=== PATIENT | male | born 1955 | race African-American/Black ===

== ENCOUNTER 2019-09-28 09:43 | Inpatient (IN) | payer OTHER, SELFPAY ==
[2019-09-28] VITALS (23 sets, daily range): BP systolic 105–127; BP diastolic 63–82; PULSE 82–100; RESP 9–22; TEMP 36.6–37.2; O2SAT 80–99; BMI 24.7
--- NOTE | ~2019-09-28 | US_ITS ---
EXAMINATION: US venous doppler [facility] DATE: 09/28/2019 15:08 INDICATION: Lower limb edema. TECHNIQUE: Grayscale ultrasound images without and with compression and Doppler ultrasound images of the bilateral lower extremity veins were obtained. COMPARISON: None. FINDINGS: The visualized portions of right common femoral vein, profunda (deep) femoral vein, femoral vein, pop liteal vein, peroneal veins, posterior tibial veins, and greater saphenous vein outflow are patent. The visualized portions of left common femoral vein, profunda femoral vein, femoral vein, popliteal v ein, peroneal veins, posterior tibial veins, and greater saphenous vein outflow are patent. IMPRESSION: 1. No deep venous thrombosis. Reviewed, dictated and finalized at location A. ET CAR MECHANIC
--- NOTE | ~2019-09-28 | US_ITS ---
US abdomen complete EXAMINATION: US Abdomen Complete INDICATION: Elevated liver function tests. PROCEDURE: Realtime High Resolution abdomen ultrasound. COMPARISON: No prior studies for comparison FINDINGS: Gallbladder within normal limits. No gallstones, pericholecystic fluid, gallbladder wall t hickening or biliary dilatation. Common bile duct measures mm. Liver echotexture within normal limits without focal mass. Pancreas within normal limits. Pancreati c tail is obscured by bowel gas. Spleen is enlarged measuring 14.2 cm. There are bilateral renal cys ts measuring up to 1.9 cm on the right and 1.6 cm on the left. Otherwise, renal echotexture within no rmal limits. Right kidney measures 10.8 cm. Left kidney measures 10.1 cm. Visualized aspects of the aorta and IVC are within normal limits. Portal vein is patent. No sonograph ic New's sign indicated by the technologist. IMPRESSION: 1: Splenomegaly. 2: Bilateral renal cysts. Reviewed, dictated and finalized at location B. CAL RECORDS RECEPTIONIST
--- NOTE | ~2019-09-28 | CT_ITS ---
EXAMINATION: CT chest w con EXAM DATE: 09/30/2019 12:32 INDICATION: Right heart failure. Abnormal chest x-ray. CML. TECHNIQUE: Spiral CT of the chest following intravenous injection of 75 mL Omnipaque 350. Axial, cor onal and sagittal images were reviewed. Coronal maximum intensity pixel images of chest reviewed. T tere dose-length product (DLP) for this examination was 217.37 mGy-cm. The exposure was tailored accor ding to patient size (auto mA exposure control), and iterative reconstruction (ASIR) was used as toño tional dose reduction technique. Correlation is made to chest x-ray 09/28/2019. FINDINGS: There is 1 cm left upper lobe calcified granuloma. Mild interlobular septal thickening, pu lmonary edema or interstitial lung disease. There is moderate emphysema. Some small scattered regions of ground glass opacifications could be nonspecific pneumonitis, interstitial lung disease, acute ed sushma or infection, cryptogenic organizing pneumonia. There are no pleural or pericardial effusions. Tracheobronchial tree is patent. There is no mediastinal, hilar or axillary lymphadenopathy. The re is no pneumothorax. Heart normal in size. There is mild coronary arterial calcification, arter ial sclerosis. Left adrenal adenoma. Subcentimeter splenic hypodensity likely benign. There is thor acic spondylosis without osteoblastic or osteolytic lesions identified. IMPRESSION: 1. Some scattered groundglass opacities, could be edema or infection if acute. Chronic possibilities include pneumonitis, cryptogenic organizing pneumonia. 2. Mild interlobular septal thickening. 3. Moderate emphysema Reviewed, dictated and finalized at location A. TTANCE CLERK
--- NOTE | ~2019-09-28 | XR_ITS ---
XR chest 1V portable 09/28/2019 10:36 Indication: Shortness of breath Procedure: AP portable chest Comparison: 06/04/2017 Findings: Heart size normal. Mild diffuse bilateral mixed interstitial and airspace disease. No pleur al effusion or pneumothorax. There is atherosclerosis of the aorta. No acute osseous abnormality. Impression: 1: Mild diffuse mixed bilateral interstitial and airspace disease which may represent edema or less l ikely pneumonia. Reviewed, dictated and finalized at location B. OARDER Impression: 1: Mild diffuse mixed bilateral interstitial and airspace disease which may rep resent edema or less likely pneumonia.
--- NOTE | 2019-09-28 09:59 | ED.GENADULT ---
HPI - General Adult General Chief complaint: Unspecified Stated complaint: leg swelling Time Seen by Provider: 09/28/19 09:58 Source: patient Mode of arrival: ambulatory Limitations: no limitations History of Present Illness HPI narrative: The pt is a 64 y/o male who presents to the ED with c/o bilateral leg swelling. The pt states that his leg swelling has been on and off for many years. He decided to come to the ED today because the swelling is making it hard for him to walk. The pt reports urinary frequncy, but denies dysuria. He states that he was on Lasix a while back but is not currently on any diuretics. The pt has a PMHx of arthritis and HTN, but denies having kidney problems. He does not know if he has any heart problems. The pt follows up with Dr. Duran for leukemia. complaint: Leg swelling Onset (ago): year(s) (worse today) Associated symptoms: other (urinary frequency) Related Data Allergies Allergy/AdvReac Type Severity Reaction Status Date / Time NSAIDS (Non-Steroidal AdvReac Gastrointestinal Verified 09/28/19 10:04 Anti-Inflamma Upset Penicillins AdvReac Hives Verified 09/28/19 10:04 Review of Systems Review of Systems: All systems reviewed & are unremarkable except as noted in HPI and below Genitourinary: Genitourinary: Denies dysuria and Reports urinary frequency Musculoskeletal: Musculoskeletal: Reports other (bilateral leg swelling) [facility], [facility] Past Medical History Medical History Arthritis (Acute) Hypertension (Acute) Surgical History Surgical History No pertinent past surgical history (Acute) Social History Social History Smoking status: Never smoker Gender identity (if verbalized by the patient): Male Exam Const: General: no acute distress and alert Orientation/consciousness: oriented x3 HENMT: Head: normal to inspection Eyes: Conjunctivae: conjunctivae normal Pupils: PERRL Neck: Neck: normal visual inspection Chest: Chest palpation & inspection: normal inspection of the chest and abnormal inspection of the chest Resp: Effort & Inspection: normal respiratory effort Auscultation: clear to auscultation bilaterally GI: Palpation (GI): Yes soft Back/Spine/Pelvis: Back: no CVA tenderness Skin: General skin exam: normal color Neuro: General: oriented x3 and moves all extremities Extrem: General: edema Other: has 2 plus edema of both lower ext. Course Course Emergency Course: Patient desataurated to 85 to 86% on room air. I have given him 40 of Lasix he voided close to 600 mL of urine. He states that he has a prescription for oxygen but he does not have oxygen supply at home. will admit to the hospital Consultations Consultation #1: Discussed case with Hospitalist, Dr. Younger. Accepted admission. Date: 09/28/19 Time: 11:50 Vital Signs Vital signs: Vital Signs Temperature 37.2 C 09/28/19 09:59 Pulse Rate 87 09/28/19 09:59 Respiratory Rate 12 09/28/19 09:59 Blood Pressure 127/82 09/28/19 09:59 Pulse Oximetry 84 L 09/28/19 09:59 Temperature 37.2 C 09/28/19 09:59 Pulse Rate 87 09/28/19 11:31 Respiratory Rate 10 L 09/28/19 11:31 Blood Pressure 114/75 09/28/19 11:30 Pulse Oximetry 84 L 09/28/19 09:59 Medical Decision Making Vital Signs Vital Signs: Vital Signs Temperature 37.2 C 09/28/19 09:59 Pulse Rate 87 09/28/19 09:59 Respiratory Rate 12 09/28/19 09:59 Blood Pressure 127/82 09/28/19 09:59 Pulse Oximetry 84 L 09/28/19 09:59 Temperature 37.2 C 09/28/19 09:59 Pulse Rate 87 09/28/19 11:31 Respiratory Rate 10 L 09/28/19 11:31 Blood Pressure 114/75 09/28/19 11:30 Pulse Oximetry 84 L 09/28/19 09:59 Lab Data Result diagrams: 09/28/19 10:21 09/28/19 10:21 Labs: Lab Results 09/28/19 09/28/19 Rang
--- NOTE | 2019-09-28 10:02 | ECG_ITS ---
Measurements Intervals [place] Rate: 88 P: 50 IL: 139 QRS: 46 QRSD: 85 T: 30 QT: 380 QTc: 462 Interpretive Statements SINUS RHYTHM POSSIBLE LEFT ATRIAL ENLARGEMENT POSSIBLE LEFT VENTRICULAR HYPERTROPHY BORDERLINE ECG Electronically Signed On 09-28-2019 13:56:24 DOCENT COORDINATOR by Brennan Hightower D.O.
--- NOTE | 2019-09-28 10:18 | PC.NURSE ---
PT STATES THAT HE STOPPED USING HEROINE X1 MONTH PRIOR AND IS TAKING SUBOXONE.
[2019-09-28] MEDS: FUROSEMIDE INJ 40 MG/4 ML VIAL IV PUSH ×2 (10:19→22:08)
--- NOTE | 2019-09-28 10:27 | PC.NURSE ---
Pt placed on 2L o2 per RN tequila at time of Initial assessment due to pt RA o2 saturation 88-89%.
[2019-09-28 10:37] LABS: Basophils Percent Auto 0.8 % (0.2-1.2); Eosinophils Percent Auto 0.8 % (0-4.4); Hematocrit 35.6 % (42.0-52.0); Hemoglobin 10.6 g/dL (14.0-18.0); Immature Granulocyte Absolute 0.01 K/mm3 (0.00-0.031); Immature Granulocyte Percent A 0.2 % (0-0.5); Immature Platelet Fraction Pct 2.5 % (0.9-11.2); Mean Corpuscular HGB Conc 29.8 g/dl (32-36); Mean Corpuscular Hemoglobin 25.4 pg (26-34); Mean Corpuscular Volume 85.4 fl (80-100); Mean Platelet Volume 9.8 fl (7.4-10.4); Monocytes Absolute Auto 0.9 K/mm3 (0.1-0.6); Monocytes Percent Auto 17.2 % (2.6-8.5); Neutrophils Absolute Auto 3.3 K/mm3 (1.3-6.7); Platelet Count Result 190 k/mm3 (150-375); Red Blood Count 4.17 M/mm3 (4.6-6.20); Red Cell Distribution Width 21.2 % (11.5-14.5)
--- NOTE | 2019-09-28 10:46 | PC.NURSE ---
Pt c/o leg pain at this time, RN informed pt that md does not want to give narcotic pain medication due to pt taking suboxone and significant hx of herione use. RN asked MD about medication for pt due to his c/o pain, WINNIE Pastor gave verbal order for Ofirmev 1G IV at this time.
[2019-09-28 10:48] LABS: Alanine Aminotransferase 101 U/L (4-50); Albumin Level 4.2 g/dL (3.5-5.1); Alkaline Phosphatase 170 U/L (38-126); Aspartate Amino Transferase 69 U/L (17-59); Bilirubin,Total 0.5 mg/dL (0.2-1.3); Blood Urea Nitrogen 20 mg/dL (9-20); Calcium 8.1 mg/dL (8.4-10.2); Carbon Dioxide 32 mmol/L (22-30); Chloride 100 mmol/L (98-107); Estimated Glomerular Filt Rate > 60; Glucose 90 mg/dL (75-110); Potassium 5.4 mmol/L (3.4-5.0); Sodium 139 mmol/L (137-145)
[2019-09-28 10:54] LABS: Anisocytosis 2+ (NORMAL); Hypochromasia 1+ (NORMAL); Microcytosis 1+ (NORMAL); Platelet Estimate Adequate (Adequate)
[2019-09-28 11:00] LABS: NT Pro B Type Natriuretic Pept 1780 PG/ML (5-100); Troponin I 0.014 ng/mL (0.000-0.034)
--- NOTE | 2019-09-28 11:06 | PC.NURSE ---
Pt refused ofirmev, stating Fuck that shit, it fucks with my stomach, don't give me that. MD aware, no new orders.
--- NOTE | 2019-09-28 13:31 | ADMGEN ---
This patient, Dain Sprague, was admitted to [facility] Surg Room 332-02. Patient/family oriented to hospital policies and general routines including ID bracelet, bed and alarms, visiting hours, pain management, procedures, bathroom and other care routines, personal items, smoking policy, room service/diet, and visiting hours. Valuables list has been completed. Information on how to activate the Rapid Response Team has been discussed. Patient/Family are encouraged to report perceived risks to care and to ask questions if they do not understand what they are told or what they should do.
--- NOTE | 2019-09-28 13:47 | PC.NURSE ---
Patient arrived on our floor today from the ER @ 1330.
--- NOTE | 2019-09-28 14:29 | PC.NURSE ---
Patient poor historian and refuses to answer admission questions.
--- NOTE | 2019-09-28 14:48 | PC.NURSE ---
to ultrasound per stretcher
--- NOTE | 2019-09-28 15:00 | PC.NURSE ---
patient brought home medications here with him. [place] container empty. witnessed with Jc Yin.
[2019-09-28 15:04] LABS: Troponin I 0.012 ng/mL (0.000-0.034)
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
[2019-09-28 17:37] LABS: Magnesium 2.2 mg/dL (1.6-2.3); Phosphorus 4.6 mg/dL (2.5-4.5); Potassium 4.6 mmol/L (3.4-5.0)
[2019-09-28 17:49] LABS: Troponin I < 0.012 ng/mL (0.000-0.034)
[2019-09-28] MEDS: ALBUTEROL SULFATE NEB 2.5 MG/0.5 ML INH 5 MG INHALATION (20:05)
[2019-09-28] MEDS: IPRATROPIUM BR 0.02% INH SOLN 0.5 MG/2.5 ML VIAL INHALATION (20:05)
[2019-09-28] MEDS: GABAPENTIN 400 MG CAPSULE PO (22:08)
[2019-09-28 22:26] LABS: INR 1.2
[2019-09-28 22:28] LABS: D Dimer 0.69 ug/mL (<0.48)
[2019-09-28 22:36] LABS: Troponin I < 0.012 ng/mL (0.000-0.034)
[2019-09-29] VITALS (16 sets, daily range): BP systolic 111–119; BP diastolic 65–67; PULSE 77–106; RESP 16–20; TEMP 36.7–36.8; O2SAT 74–95
--- NOTE | 2019-09-29 00:47 | PC.NURSE ---
PATIENT KEEPS REMOVING TELEMETRY AND STATING THAT IT IS FALLING OFF. PATIENT IS ALSO EATING ICE CREAM AND JULES CRACKER AND DRINKING COFFEE AND COKE SODA AT LEAST ONE TO TWO EVERY 2 HOURS.
[2019-09-29] MEDS: IPRATROPIUM BR 0.02% INH SOLN 0.5 MG/2.5 ML VIAL INHALATION ×3 (01:59→22:48)
[2019-09-29] MEDS: ALBUTEROL SULFATE NEB 2.5 MG/0.5 ML INH 5 MG INHALATION ×3 (01:59→22:47)
--- NOTE | 2019-09-29 05:05 | PC.NURSE ---
PATIENT KEEPS REMOVING TELEMETRY, AND OXYGEN. PATIENT GOT COMPLETELY DRESSED. KEPT SAYING THAT HE WAS GOING HOME. THAT HE THOUGHT THEY WERE GOING TO RELEASE HIM. HAD TO CONVINCE HIM THAT HE WASN'T QUITE READY.
[2019-09-29] MEDS: GABAPENTIN 400 MG CAPSULE PO ×3 (05:08→20:34)
[2019-09-29 06:37] LABS: Blood Urea Nitrogen 23 mg/dL (9-20); Calcium 7.5 mg/dL (8.4-10.2); Carbon Dioxide 29 mmol/L (22-30); Chloride 99 mmol/L (98-107); Estimated CRCL calculation 64 ml/min; Estimated Glomerular Filt Rate > 60; Glucose 114 mg/dL (75-110); Potassium 5.1 mmol/L (3.4-5.0); Sodium 138 mmol/L (137-145)
[2019-09-29] MEDS: ALLOPURINOL 300 MG TABLET PO (08:55)
[2019-09-29] MEDS: FLUOXETINE HCL 20 MG CAP PO (08:55)
[2019-09-29] MEDS: FUROSEMIDE INJ 40 MG/4 ML VIAL IV PUSH (08:55)
[2019-09-29] MEDS: FERROUS SULFATE 324 MG TABLET PO (08:55)
--- NOTE | 2019-09-29 09:51 | PCRCNOTE ---
Pt. refused his breathing tx; Dr. Mistry notified of the refusal.
--- NOTE | 2019-09-29 10:01 | PHAR ---
HOME MEDICATION VERIFIED BY PHARMACY: IMATINIB MESYLATE 400MG TABLETS TAKE 1 TABLET PO DAILY AFTER BREAKFAST RX#[id number]
--- NOTE | 2019-09-29 13:00 | PM.IMPN ---
Progress Note: A&P Assessment and Plan (1) CHF (congestive heart failure): Qualifiers: Heart failure chronicity: acute on chronic Heart failure type: diastolic Qualified Code(s): I50.33 - Acute on chronic diastolic (congestive) heart failure Code(s): I50.9 - Heart failure, unspecified Status: Acute Assessment and Plan: Findings appear consistent with congestive heart failure. Patient has not yet signed release for records from [facility] in [place], [place] but agrees to do so at this point. Echocardiogram done today with EF 65-70%, mild concentric increased left ventricular wall thickness and normal diastolic function with no significant valvular abnormality. As he does have oxygen requirement, will check Apnea Link. Will continue IV Lasix for now. (2) Acute respiratory failure with hypoxia: Code(s): J96.01 - Acute respiratory failure with hypoxia Status: Acute Assessment and Plan: Patient reports he is supposed to use oxygen at home but is not using. Venous Dopplers of the lower extremities negative for DVT. Does not appear to be consistent with pneumonia with no cough, fever or elevated WBC. Will do CT chest as noted above. Hold off on antibiotics at this point. (3) Elevated LFTs: Code(s): R94.5 - Abnormal results of liver function studies Status: Acute Assessment and Plan: Mild elevation of LFTs on admission. History of IV drug use but pending. He is on Gleevec for CML which could be causing mild elevation. With echocardiogram normal and edema issues, will check abdominal ultrasound. Continue to follow LFTs. (4) Hyperkalemia: Code(s): E87.5 - Hyperkalemia Status: Acute Assessment and Plan: Potassium level back up to 5.1 today. Will continue to follow. Creatinine remains within acceptable range. (5) Iron deficiency anemia: Qualifiers: Iron deficiency anemia type: unspecified iron deficiency Qualified Code(s): D50.9 - Iron deficiency anemia, unspecified Code(s): D50.9 - Iron deficiency anemia, unspecified Status: Acute Assessment and Plan: Hgb 10.6 today and stable. Will continue home iron. Will follow H&H. Transfuse if needed. (6) DVT prophylaxis: Code(s): Z29.9 - Encounter for prophylactic measures, unspecified Status: Acute Assessment and Plan: Lovenox. Time Spent With Patient Time with patient: 15 - 25 minutes Subjective Interval history: Date of Service: 09/29/2019. Admitted with CHF exacerbation. Patient is up eating his lunch. He still has swelling in his legs. Reports shortness of breath with exertion. No chest pain or chest pressure. No abdominal pain. No headaches or dizziness. Review of Systems Constitutional: Constitutional: Denies chills and Denies fever(s) ENT: Denies dysphagia Cardiovascular: Cardiovascular: Denies chest pain and Denies palpitations Respiratory: Respiratory: Denies cough and Reports dyspnea on exertion Gastrointestinal: Gastrointestinal: Denies abdominal pain, Denies nausea and Denies vomiting Genitourinary: Genitourinary: Denies hematuria, Denies dysuria and Denies urinary frequency Musculoskeletal: Musculoskeletal: Reports no additional musculoskeletal complaints Integumentary/Breasts: Skin/Breast: Denies rash Neurologic: Denies headache(s) Psychiatric: Psychiatric: Denies confusion Exam Const: General: no acute distress HENMT: Mouth: Yes moist mucous membranes Neck: Neck: supple Lymphatic: lymphadenopathy not noted Resp: Auscultation: rales (2/3 up lung field bilaterally), no wheezes and diminished lung sounds Cardio: Rate: regular rate Rhythm: regular rhythm GI: Palpation (GI): Yes soft and No tender Auscultation: normal bowel sounds Neuro: Speech: normal speech Extrem: General: edema (2-3+ lower extremities) Psych: Mental Status: mental status grossly normal Affect: normal affec
--- NOTE | 2019-09-29 16:28 | ECHO_ITS ---
Patient Info Name: Dain Sprague Age: 64 years : 1955 Gender: Male Ht: 72 in Wt: 183 lbs BSA: 2.06 m2 HR: 85 bpm BP: 111 / 66 mmHg Heart Rhythm: Sinus Rhythm Technical Quality: Good Exam Date: 09/29/2019 9:30 AM Exam Location: [facility] Pulmonary Patient Status: Inpatient Admit Date: 09/28/2019 Staff Ordering Physician: Marina Moyer PA-C Senior Communications Specialist: Lio Ware RDCS Attending Provider: Leola Ayers MD Referring Physician: Comfort GUTIERREZ; Exam Type: CA echo doppler color flow Study Info Indications I50.30 - Unspecified diastolic (congestive) heart failure Complete two-dimensional, color flow and Doppler transthoracic echocardiogram is performed. Strain analysis performed. History/Risk Factors HFpEF; HTN, LE Edema, PSA. Summary 1. Left ventricular systolic function is normal, estimated at 65-70%. 2. There is mild concentric increased left ventricular wall thickness. 3. The left ventricular diastolic function is normal. 4. No significant valvular abnormality. Left Ventricle Left ventricular chamber dimension is normal. Left ventricular systolic function is normal, estimated at 65-70%. There is mild concentric increased left ventricular wall thickness. The left ventricular diastolic function is normal. Right Ventricle Right ventricular chamber dimension is normal. Left Atria Left atrial chamber dimension is normal. Right Atria Right atrial chamber dimension is normal. Aortic Valve The aortic valve is trileaflet. Pulmonic Valve The pulmonic valve is not well visualized. Mitral Valve The mitral valve has normal leaflets. Tricuspid Valve The tricuspid valve leaflets are normal. There is trace tricuspid valve regurgitation. Pericardium/Pleural The pericardium appears normal. Aorta The aortic root size at the sinus of Valsalva is normal. Left Ventricular Outflow Tract Name Value Normal LVOT 2D LVOT Diameter 1.9 cm LVOT Doppler LVOT Peak Gradient 7 mmHg LVOT Mean Gradient 4 mmHg LVOT VTI 25 cm LVOT VTI/AV VTI Ratio 0.7 LVOT Stroke Volume 74 ml Mitral Valve Name Value Normal MV Doppler MV Decel Carbon 343 cm/s2 MV PHT 67 ms MV Area (PHT) 3.3 cm2 4.0-5.0 MV Diastolic Function MV E Peak Velocity 79 cm/s MV A Peak Velocity 69 cm/s MV E/A 1.1 MV Decel Time 230 ms MV Annular TDI
[2019-09-29 22:40] LABS: Hepatitis B Surface Antigen Negative (Negative)
[2019-09-29 22:46] LABS: HAV RESULT Negative (Negative); Hepatitis B Core IgM Result Negative (Negative)
[2019-09-29 23:02] LABS: Hepatitis C Virus Antibody Reactive (Negative)
[2019-09-30] VITALS (17 sets, daily range): BP systolic 147; BP diastolic 125; PULSE 85–114; RESP 18–20; TEMP 36.4; O2SAT 77–93
--- NOTE | 2019-09-30 05:14 | PC.NURSE ---
PATIENT HAS CONSISTENTLY ASKED FOR 2 CANS OF SODA FROM EVERY PERSON THAT COMES INTO THE ROOM. PATIENT REFUSED TO TAKE HIS LASIX, STATED IT WAS A BLOOD THINNER AND STATED STAFF WAS LYING WHEN TOLD DIFFERENTLY. PATIENT REFUSED HIS BLOOD THINNER. PATIENT WAS CURSING AT STAFF AND THROWING TELEMETRY BOX AT STAFF. PATIENT REFUSED TO WEAR THE ENTIRE SLEEP APNEA EQUIPMENT. STATED THAT IT WASN'T WORKING AND THAT WE DID NOT KNOW WHAT WE WERE TALKING ABOUT. PATIENT IS DEMANDING THAT IV BE REMOVED. AND DOES NOT WANT ANOTHER ONE PLACED BACK IF REMOVED. PATIENT REFUSED TO COOPERATE WITH STAFF.
[2019-09-30 06:23] LABS: Hematocrit 36.4 % (42.0-52.0); Hemoglobin 10.8 g/dL (14.0-18.0); Mean Corpuscular HGB Conc 29.7 g/dl (32-36); Mean Corpuscular Hemoglobin 25.8 pg (26-34); Mean Corpuscular Volume 87.1 fl (80-100); Mean Platelet Volume 9.7 fl (7.4-10.4); Platelet Count Result 181 k/mm3 (150-375); Red Blood Count 4.18 M/mm3 (4.6-6.20); Red Cell Distribution Width 21.2 % (11.5-14.5); White Blood Count 3.6 K/mm3 (4.5-10.0)
[2019-09-30 06:35] LABS: Blood Urea Nitrogen 17 mg/dL (9-20); Calcium 7.8 mg/dL (8.4-10.2); Carbon Dioxide 32 mmol/L (22-30); Chloride 103 mmol/L (98-107); Estimated CRCL calculation 78 ml/min; Estimated Glomerular Filt Rate > 60; Glucose 108 mg/dL (75-110); Potassium 5.5 mmol/L (3.4-5.0); Sodium 140 mmol/L (137-145)
--- NOTE | 2019-09-30 07:31 | PCRCNOTE ---
09/30 0200 neb treatment omitted. Patient on apnea link.
[2019-09-30] MEDS: ASPIRIN 81 MG CHEWABLE TABLET PO (09:11)
[2019-09-30] MEDS: FERROUS SULFATE 324 MG TABLET PO (09:11)
[2019-09-30] MEDS: FLUOXETINE HCL 20 MG CAP PO (09:12)
[2019-09-30] MEDS: ALLOPURINOL 300 MG TABLET PO (09:12)
[2019-09-30] MEDS: ALBUTEROL SULFATE NEB 2.5 MG/0.5 ML INH 5 MG INHALATION ×3 (10:04→20:46)
[2019-09-30] MEDS: IPRATROPIUM BR 0.02% INH SOLN 0.5 MG/2.5 ML VIAL INHALATION ×3 (10:04→20:46)
--- NOTE | 2019-09-30 11:54 | PM.IMPN ---
Progress Note: A&P Assessment and Plan (1) Acute respiratory failure with hypoxia: Code(s): J96.01 - Acute respiratory failure with hypoxia Status: Acute Assessment and Plan: Noted to have hypoxia on presentation. Patient reports he is supposed to use oxygen at home but has not been using. Venous Dopplers of the lower extremities negative for DVT. Has not appeared to have pneumonia but CT chest ordered today with results as noted below. Home oxygen evaluation ordered for today with patient found to require 3 L at rest and 5 L with activity. Possibly home tomorrow if stable. (2) Abnormal chest CT: Code(s): R93.89 - Abnormal findings on diagnostic imaging of other specified body structures Status: Acute Assessment and Plan: Initial chest x-ray on admission with mild diffuse mixed bilateral interstitial and airspace disease. Clinically has not appeared to have pneumonia as noted. However, CT chest ordered today with ground-glass opacities which could be edema or infection if acute. Moderate emphysema also noted. Patient has now signed for records from [facility] in [place], [place]. He reports he has previously had a CT scan within the past few months there. As I do not yet have comparison, will cover for the possibility of infection with oral Levaquin although patient does not have elevated white blood cell count, cough or fever. (3) CHF (congestive heart failure): Qualifiers: Heart failure chronicity: acute on chronic Heart failure type: diastolic Qualified Code(s): I50.33 - Acute on chronic diastolic (congestive) heart failure Code(s): I50.9 - Heart failure, unspecified Status: Acute Assessment and Plan: Findings initially appeared consistent with congestive heart failure but echocardiogram on 09/29/2019 with EF 65-70%, mild concentric increased left ventricular wall thickness and normal diastolic function with no significant valvular abnormality. With edema in lower extremities improved with elevated even with patient refusing diuretic and these echocardiogram findings, consider CHF ruled out at this point. (4) Elevated LFTs: Code(s): R94.5 - Abnormal results of liver function studies Status: Acute Assessment and Plan: Mild elevation of LFTs on admission. History of IV drug use with hepatitis screening positive for hepatitis C antibody. Hepatitis-C RNA now pending. Abdominal ultrasound today with splenomegaly and bilateral renal cysts. He is also on Gleevec for CML which could be adding to mild elevation. Will follow LFTs. If hepatitis C RNA is positive will need referral to GI as an outpatient. (5) Hyperkalemia: Code(s): E87.5 - Hyperkalemia Status: Acute Assessment and Plan: Potassium is 5.5 today with patient not using either diuretic. Creatinine level remains within normal range. Will recheck in a.m.. (6) Iron deficiency anemia: Qualifiers: Iron deficiency anemia type: unspecified iron deficiency Qualified Code(s): D50.9 - Iron deficiency anemia, unspecified Code(s): D50.9 - Iron deficiency anemia, unspecified Status: Acute Assessment and Plan: Hgb 10.8 today and stable. Will continue home iron. Will follow H&H. (7) DVT prophylaxis: Code(s): Z29.9 - Encounter for prophylactic measures, unspecified Status: Acute Assessment and Plan: Lovenox. Time Spent With Patient Time with patient: 15 - 25 minutes Subjective Interval history: Date of Service: 09/30/2019. Admitted with CHF exacerbation. Patient has been quite agitated. Telemetry discontinued earlier today as he was pulling off. Nurses have had to redirect frequently. At the time of it visit, he is sitting on the side of his bed quietly. He is pleasant. He reports swelling in his legs is improved and he does not wish to use the diuretic. He reports he still have some shortness of breath wi
[2019-09-30] MEDS: GABAPENTIN 400 MG CAPSULE PO ×2 (14:11→21:26)
--- NOTE | 2019-09-30 16:45 | HOMEO2EVAL ---
Home Oxygen Evaluation RC: Home Oxygen (O2) Evaluation Start: 09/30/19 13:29 Freq: ONCE Status: Active Protocol: RPE Activity Type Activity Date Activity User E-Sign Co-Sign Detail Recorded Client Recorded Date Recorded By Document 09/30/19 15:50 CHERYL [email or web address] 09/30/19 16:34 CHERYL Document 09/30/19 15:52 CHERYL [email or web address] 09/30/19 16:34 CHERYL Document 09/30/19 15:54 CHERYL [email or web address] 09/30/19 16:34 CHERYL Document 09/30/19 15:56 CHERYL [email or web address] 09/30/19 16:34 CHERYL Document 09/30/19 15:59 CHERYL [email or web address] 09/30/19 16:34 CHERYL Document 09/30/19 16:02 CHERYL [email or web address] 09/30/19 16:34 CHERYL Document 09/30/19 16:05 CHERYL [email or web address] 09/30/19 16:34 CHERYL Document 09/30/19 16:10 CHERYL [email or web address] 09/30/19 16:34 CHERYL 09/30/19 09/30/19 09/30/19 15:50 15:52 15:54 Home O2 Evaluation Test Phase Resting Resting Resting Oxygen Delivery Room Air Nasal Cannula Nasal Cannula Oxygen Flow Rate (L/min) 1 2 Pulse Oximetry (90-100 %) 81 L 83 L 85 L Home Oxygen Evaluation Comments Treatment Charges O2 Evaluation 09/30/19 09/30/19 09/30/19 15:56 15:59 16:02 Home O2 Evaluation Test Phase Resting Exercise Exercise Oxygen Delivery Nasal Cannula Nasal Cannula Nasal Cannula Oxygen Flow Rate (L/min) 3 3 4 Pulse Oximetry (90-100 %) 90 83 L 85 L Home Oxygen Evaluation Comments Treatment Charges 09/30/19 09/30/19 16:05 16:10 Home O2 Evaluation Test Phase Exercise Resting Oxygen Delivery Nasal Cannula Nasal Cannula Oxygen Flow Rate (L/min) 5 3 Pulse Oximetry (90-100 %) 89 L 91 Home Oxygen Evaluation Comments PT REQUIRES 3 AT REST AND 5 WITH ACTIVITY Treatment Charges
--- NOTE | 2019-09-30 16:49 | PCRCNOTE ---
PT REQUIRES 3 L AT REST AND 5 L WITH ACTIVITY. SET UP WITH [facility]. PHONE # [phone]. THEY ARE TO BRING A TANK TO ROOM TODAY FOR D/C HOME.
[2019-10-01 03:06] VITALS: PULSE 80; RESP 20
[2019-10-01] MEDS: ALBUTEROL SULFATE NEB 2.5 MG/0.5 ML INH 5 MG INHALATION ×2 (03:06→09:40)
[2019-10-01] MEDS: IPRATROPIUM BR 0.02% INH SOLN 0.5 MG/2.5 ML VIAL INHALATION ×2 (03:06→09:40)
[2019-10-01 03:12] VITALS: PULSE 88; RESP 20
[2019-10-01] MEDS: GABAPENTIN 400 MG CAPSULE PO (05:29)
[2019-10-01 06:00] VITALS: BP 128/71; PULSE 99; RESP 18; TEMP 36.8; O2SAT 95
[2019-10-01 06:35] LABS: Alanine Aminotransferase 82 U/L (4-50); Albumin Level 3.8 g/dL (3.5-5.1); Alkaline Phosphatase 152 U/L (38-126); Aspartate Amino Transferase 65 U/L (17-59); Bilirubin,Total 0.4 mg/dL (0.2-1.3); Blood Urea Nitrogen 14 mg/dL (9-20); Calcium 8.2 mg/dL (8.4-10.2); Carbon Dioxide 28 mmol/L (22-30); Chloride 103 mmol/L (98-107); Estimated CRCL calculation 98 ml/min; Estimated Glomerular Filt Rate > 60; Glucose 132 mg/dL (75-110); Sodium 140 mmol/L (137-145)
[2019-10-01] MEDS: FERROUS SULFATE 324 MG TABLET PO (08:26)
[2019-10-01] MEDS: ALLOPURINOL 300 MG TABLET PO (08:26)
[2019-10-01] MEDS: FLUOXETINE HCL 20 MG CAP PO (08:26)
[2019-10-01 09:40] VITALS: PULSE 83; RESP 20
[2019-10-01 09:59] VITALS: PULSE 84; RESP 20
[2019-10-01 10:10] LABS: Hematocrit 34.5 % (42.0-52.0); Hemoglobin 10.4 g/dL (14.0-18.0); Mean Corpuscular HGB Conc 30.1 g/dl (32-36); Mean Corpuscular Hemoglobin 26.1 pg (26-34); Mean Corpuscular Volume 86.7 fl (80-100); Mean Platelet Volume 9.8 fl (7.4-10.4); Platelet Count Result 181 k/mm3 (150-375); Red Blood Count 3.98 M/mm3 (4.6-6.20); Red Cell Distribution Width 20.9 % (11.5-14.5); White Blood Count 3.7 K/mm3 (4.5-10.0)
--- NOTE | 2019-10-01 11:41 | PM.IMPN ---
Progress Note: A&P Assessment and Plan (1) Acute respiratory failure with hypoxia: Code(s): J96.01 - Acute respiratory failure with hypoxia Status: Acute Assessment and Plan: Noted to have hypoxia on presentation. Patient reports he is supposed to use oxygen at home but has not been using. Venous Dopplers of the lower extremities negative for DVT. CT chest done on 09/30/2019 with results as noted below. Home oxygen evaluation done with patient found to require 3 L at rest and 5 L with activity but patient is not always leaving oxygen in place. Suspect many of changes are actually chronic in nature. At this point, patient is stable and will discharge home today. (2) Abnormal chest CT: Code(s): R93.89 - Abnormal findings on diagnostic imaging of other specified body structures Status: Acute Assessment and Plan: Initial chest x-ray on admission with mild diffuse mixed bilateral interstitial and airspace disease. Clinically has not appeared to have pneumonia as noted. However, CT chest with ground-glass opacities which could be edema or infection if acute. Moderate emphysema also noted. Patient signed for records from [facility] in [place], [place] none yet received. As I do not have comparison, will cover for the possibility of infection with oral Levaquin to complete 5 day course although patient does not have elevated white blood cell count, cough or fever. (3) CHF (congestive heart failure): Qualifiers: Heart failure chronicity: acute on chronic Heart failure type: diastolic Qualified Code(s): I50.33 - Acute on chronic diastolic (congestive) heart failure Code(s): I50.9 - Heart failure, unspecified Status: Acute Assessment and Plan: Findings initially appeared consistent with congestive heart failure but echocardiogram on 09/29/2019 with EF 65-70%, mild concentric increased left ventricular wall thickness and normal diastolic function with no significant valvular abnormality. With edema in lower extremities improved with elevated even with patient refusing diuretic and these echocardiogram findings. Consider CHF ruled out at this point. (4) Elevated LFTs: Code(s): R94.5 - Abnormal results of liver function studies Status: Acute Assessment and Plan: Mild elevation of LFTs on admission with AST 65 and ALT 82 today. History of IV drug use with hepatitis screening positive for hepatitis C antibody. Hepatitis-C RNA still pending. Abdominal ultrasound with splenomegaly and bilateral renal cysts. He is also on Gleevec for CML which could be adding to mild elevation. Advised patient if hepatitis C RNA is positive, will need referral to GI as an outpatient. (5) Hyperkalemia: Code(s): E87.5 - Hyperkalemia Status: Acute Assessment and Plan: Potassium is 5.0 today. Creatinine level remains within normal range. Follow as outpatient (6) Iron deficiency anemia: Qualifiers: Iron deficiency anemia type: unspecified iron deficiency Qualified Code(s): D50.9 - Iron deficiency anemia, unspecified Code(s): D50.9 - Iron deficiency anemia, unspecified Status: Acute Assessment and Plan: Hgb 10.4 today and stable. Will continue home iron. Will follow H&H. (7) DVT prophylaxis: Code(s): Z29.9 - Encounter for prophylactic measures, unspecified Status: Acute Assessment and Plan: Lovenox. Time Spent With Patient Time with patient: 15 - 25 minutes Subjective Interval history: Date of Service: 10/01/2019. Admitted with CHF exacerbation. Feeling better today. Denies shortness of breath. Has not been always using his oxygen. No chest pain or chest pressure. No abdominal pain. Edema legs better. Wants to go home. Review of Systems Review of Systems: Narrative: Feeling better. Constitutional: Constitutional: Denies chills and Denies fever(s) ENT: Denies dysphagia
--- NOTE | 2019-10-01 16:43 | PM.DS ---
DS: Diagnosis Admitting Diagnosis Admitting Diagnosis: Hypertensive heart disease with heart failure Discharge Diagnosis (1) Acute respiratory failure with hypoxia: Code(s): J96.01 - Acute respiratory failure with hypoxia Status: Acute (2) Abnormal chest CT: Code(s): R93.89 - Abnormal findings on diagnostic imaging of other specified body structures Status: Acute (3) CHF (congestive heart failure): Qualifiers: Heart failure chronicity: acute on chronic Heart failure type: diastolic Qualified Code(s): I50.33 - Acute on chronic diastolic (congestive) heart failure Code(s): I50.9 - Heart failure, unspecified Status: Acute Assessment and Plan: RULED OUT (4) Elevated LFTs: Code(s): R94.5 - Abnormal results of liver function studies Status: Acute (5) Hyperkalemia: Code(s): E87.5 - Hyperkalemia Status: Acute (6) Iron deficiency anemia: Qualifiers: Iron deficiency anemia type: unspecified iron deficiency Qualified Code(s): D50.9 - Iron deficiency anemia, unspecified Code(s): D50.9 - Iron deficiency anemia, unspecified Status: Acute DS: Summary Hospital Course Reason for hospitalization: Leg swelling and pain. Hospital Course: Date of Service of Discharge: October 01, 2019. History of Present Illness: Patient is a 64-year-old gentleman currently undergoing treatment for CML per Dr. Chance present to the emergency room for evaluation of leg pain and swelling. Patient reports having intermittent lower leg swelling bilaterally of the last few years. Recently is no sign increase in swelling from baseline. He additionally has been suffering from bilateral charley horses that extend up both legs almost to the buttocks. Pain and swelling in his legs has made it difficult for him to walk. He was previously on furosemide but is no longer taking for unclear reasons. On presentation to the emergency room he was noted to have an oxygen saturation of 84% on room air. Upon further questioning, he reports mild shortness of breath but nothing significant. He also reports having some midsternal chest pressure off and on for last 5-6 weeks. He will occasionally have nausea and may even have vomiting and sweats with the chest pressure. No known history of coronary artery disease or congestive heart failure. No history of venous thromboembolism. No current chest pain. In the emergency room, findings were concerning for volume overload. As result, he was admitted for further evaluation and treatment. Course in Hospital: On admission, the patient was placed on the medical floor with telemetry which was discontinued by 09/30/2019 with patient not leaving in place. He was also started on IV Lasix. Patient had improvement with swelling in his legs. He was also using elevation to help with his legs and by 09/30/2019 was refusing Lasix. Echocardiogram was performed which revealed an EF of 65-70%, mild concentric increased left ventricular wall thickness and normal diastolic function with no significant valvular abnormality. Congestive heart failure was felt to be ruled out at this time with additional testing ordered. Of note, patient did have venous Dopplers of the lower extremities done on admission with no DVT found. With normal echocardiogram as noted above, CT of the chest was ordered. This was performed on 09/30/2019 with findings of ground-glass opacities which could be edema or infection of acute and moderate emphysema. Attempt had been made to obtain records from [facility] in [place], [place] where the patient stated he had had testing done within the past few months but none received by the time of discharge. With no comparison CT available, patient was placed on oral Levaquin to cover for the possibility of infection although pneumonia was doubted given the fact patient had no elevated white blood cell count or fever as well
[2019-10-05 15:45] LABS: Hepatitis C RNA, Quant PCR 124000 IU/mL
== END 2019-10-01 12:30 | disposition home or self-care (01) | DRG 133 ==
LOC: ANHED 11:57 → ANH3MEDSUR 13:00
PROVIDERS: Physician Assistant; Admitting Provider Family Medicine; Emergency Provider Family Medicine; PCP Family Medicine; Visit Provider Hospitalist
DX: J96.01 Acute respiratory failure with hypoxia (principal); Z28.21 Immunization not carried out because of patient refusal; C92.10 Chronic myeloid leukemia, BCR/ABL-positive, not having achieved remission; K21.9 Gastro-esophageal reflux disease without esophagitis; M10.9 Gout, unspecified; M19.90 Unspecified osteoarthritis, unspecified site; F17.210 Nicotine dependence, cigarettes, uncomplicated; E87.5 Hyperkalemia; R35.0 Frequency of micturition; D50.9 Iron deficiency anemia, unspecified; Z91.19 Patient's noncompliance with other medical treatment and regimen; J43.9 Emphysema, unspecified
CPT/HCPCS: 36415; 71045; 71260; 76700; 80048; 80053; 83735; 83880; 84100; 84132; 84484; 84550; 85025; 85027; 85380; 85610; 85730; 87522; 93005; 93306; 93970; 94618; 94640; 94762; 96374; 99285; A9270; G0365; J1650; J1940; Q9967

== ENCOUNTER 2019-12-06 22:13 | Emergency (ER) | payer OTHER, SELFPAY ==
--- NOTE | ~2019-12-06 | CT_ITS ---
EXAMINATION: CT abdomen pelvis w con DATE: 12/07/2019 00:03 INDICATION: Abdominal pain, diarrhea TECHNIQUE: Computed tomography (CT) of the abdomen and pelvis was performed with 100 cc Omnipaque 350 intravenous contrast. Automated exposure control and iterative reconstruction technique were employe d. Exam dose: 664.11 mGy-cm total exam DLP. COMPARISON: 09/30/2019 complete abdominal ultrasound examination 06/04/2007 CT abdomen and pelvis FINDINGS: Mild atelectasis and chronic interstitial changes at the lung bases. Borderline heart size. No pericardial or pleural effusion. No hepatic space-occupying mass lesion. Likely benign cystic 1 cm lesion at the superior aspect of th e spleen. The spleen measures approximately 11.2 cm height, within normal range. There are several pa ncreatic calcifications consistent with chronic pancreatitis. No pancreatic mass lesion or ductal dil atation is evident. Approximate 1.1 cm low-attenuation lesion of the left adrenal gland, most likely an adrenal adenoma i n the absence of any known malignancy. 1.3 cm upper and 2.1 cm lower pole right renal cysts. Approximately 1.6 and 2.2 cm lower pole left re nal cysts. Punctate nonobstructing right renal calculus; no other urinary tract calculus or hydroureteronephrosi s. The urinary bladder is unremarkable. There is mild prostate enlargement and calcification. There is atherosclerotic calcification of the abdominal aorta but no aneurysm. No intraperitoneal or retroperitoneal or pelvic mass lesion or adenopathy or ascites. There are shotty bilateral inguinal lymph nodes. There is a prominent amount of fecal material in the colon. No bowel obstruction or intraperitoneal f ree air is evident. There is prominent degenerative change at the apophyseal joints in the lower lumbar and lumbosacral a geni with associated grade 1 anterolisthesis at L3-4 and to a greater extent L4-5. There is degenerati ve disc disease at multiple levels, most prominent at L5-S1. Diffuse idiopathic skeletal hyperostosis of the lower thoracic and upper lumbar spine. IMPRESSION: Probably benign 1 cm cystic lesion of superior aspect of spleen Chronic pancreatitis 1.1 cm low-attenuation left adrenal lesion, most likely an adrenal adenoma in the absence of any know n malignancy Bilateral renal cysts Punctate nonobstructing right renal stone. Reviewed, dictated and finalized at [facility]. Reviewed, dictated and finalized at [facility]. C BOX MECHANIC IMPRESSION: Probably benign 1 cm cystic lesion of superior aspect of spleen Chronic pancreatitis 1.1 cm low-attenuation left adrenal lesion, most likely an adrenal adenoma in t he absence of any known malignancy Bilateral renal cysts Punctate nonobstructing right renal stone.
--- NOTE | ~2019-12-06 | XR_ITS ---
EXAMINATION: XR chest 2V DATE: 12/06/2019 22:49 INDICATION: Cough and hypotension TECHNIQUE: AP and lateral views of the chest are obtained. COMPARISON: 10/04/2019 FINDINGS: The lungs are free of acute opacities. There is no pleural effusion or pneumothorax. The ca rdiomediastinal silhouette is normal. There is moderate thoracic spondylosis. IMPRESSION: 1. No acute cardiopulmonary abnormality. Reviewed, dictated and finalized at [facility]. STMENT FUND MANAGER
[2019-12-06 22:16] VITALS: BP 81/57; PULSE 90; RESP 16; TEMP 37.4; O2SAT 93
[2019-12-06 22:24] VITALS: BP 106/60; PULSE 83; RESP 15; O2SAT 95
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
--- NOTE | 2019-12-06 22:31 | ECG_ITS ---
Measurements Intervals [place] Rate: 79 P: 49 CT: 173 QRS: 48 QRSD: 86 T: 19 QT: 375 QTc: 431 Interpretive Statements SINUS RHYTHM EARLY PRECORDIAL R/S TRANSITION BORDERLINE ECG Electronically Signed On 12-07-2019 7:11:34 MANAGING MEMBER by Brennan Hightower D.O.
[2019-12-06 23:12] LABS: Basophils Absolute Auto 0.1 K/mm3 (0.0-0.1); Basophils Percent Auto 1.1 % (0.2-1.2); Eosinophils Absolute Auto 0.1 K/mm3 (0-0.3); Eosinophils Percent Auto 1.7 % (0-4.4); Hemoglobin 11.3 g/dL (14.0-18.0); Immature Granulocyte Percent A 1.6 % (0-0.5); Lymphocytes Percent Auto 12.7 % (18.3-44.2); Mean Corpuscular HGB Conc 30.5 g/dl (32-36); Mean Corpuscular Hemoglobin 25.6 pg (26-34); Mean Corpuscular Volume 83.7 fl (80-100); Mean Platelet Volume 11.2 fl (7.4-10.4); Monocytes Absolute Auto 1.1 K/mm3 (0.1-0.6); Monocytes Percent Auto 16.8 % (2.6-8.5); Neutrophils Absolute Auto 4.2 K/mm3 (1.3-6.7); Neutrophils Percent Auto 66.1 % (45.5-73.1); Platelet Count Result 351 k/mm3 (150-375); Red Blood Count 4.42 M/mm3 (4.6-6.20); Red Cell Distribution Width 20.2 % (11.5-14.5); White Blood Count 6.3 K/mm3 (4.5-10.0)
[2019-12-06] MEDS: SODIUM CHLORIDE 0.9% IV 1,000 ML 999 ML IV CONT (23:12)
[2019-12-06 23:21] LABS: INR 1.2; Prothrombin Time 14.4 Seconds (11.1-14.7)
[2019-12-06 23:22] LABS: Partial Thromboplastin Time 34.7 SECONDS (22.3-36.8)
[2019-12-06 23:27] LABS: Alanine Aminotransferase 115 U/L (4-50); Albumin Level 3.8 g/dL (3.5-5.1); Alkaline Phosphatase 163 U/L (38-126); Aspartate Amino Transferase 123 U/L (17-59); Bilirubin,Total 0.5 mg/dL (0.2-1.3); Blood Urea Nitrogen 18 mg/dL (9-20); Calcium 8.3 mg/dL (8.4-10.2); Carbon Dioxide 26 mmol/L (22-30); Chloride 102 mmol/L (98-107); Estimated CRCL calculation 64 ml/min; Estimated Glomerular Filt Rate > 60; Glucose 133 mg/dL (75-110); Lactic Acid Reflex 1.1 mmol/L (0.7-2.1); Lipase 11 U/L (23-300); Potassium 5.1 mmol/L (3.4-5.0); Sodium 137 mmol/L (137-145)
[2019-12-06 23:36] LABS: NT Pro B Type Natriuretic Pept 263 PG/ML (5-100)
--- NOTE | 2019-12-06 23:47 | PC.NURSE ---
pt attempting to urinate at this time.
--- NOTE | 2019-12-06 23:50 | PC.NURSE ---
RN in to recheck pt's blood pressure and ask pt for urine. Pt states he can In a minute. RN asked pt if we could use a straight cath on pt. Pt states hell no, you aren't putting that in me. RN told pt that is okay, but not providing urine will prolong his stay here. pt states give me that soda. RN told pt he cannot have anything to drink until we get his lab values back. pt starts yelling I will not be talked to like that. Not by your disrespectful ass. I have been through some shit. I lost my sister, I am sick, you are dismissed. I want to talk to the director. belt maker helper called into the room at this time.
--- NOTE | 2019-12-06 23:53 | PC.NURSE ---
urine being sent down on pt. pt to CT via stretcher.
[2019-12-07 00:04] LABS: Add Urine Microscopic? YES; Appearance Urine Clear (Clear); Bilirubin Urine Negative (Negative); Blood Urine Negative (Negative); Color Urine Yellow (Yellow); Glucose Urine UA Negative (Negative); Ketones Urine Negative (Negative); Leukocyte Esterase Ur Negative LEU/UL (Negative); Nitrate Urine Negative (Negative); Protein Urine Negative (Negative); RBC Urine 0-2 /hpf (0-2); Specific Grav Ur 1.013 (1.001-1.035); Squamous Epithelial Cell Urine Rare /hpf (Few); Urobilinogen Urine Negative mg/dL (<2.0); WBC Urine 0-3 /hpf
[2019-12-07 00:29] VITALS: BP 137/83; PULSE 79; RESP 18; O2SAT 93
[2019-12-07 00:29] LABS: Amphetamine Screen Urine Negative (Negative); Barbiturate Screen Urine Negative (Negative); Benzodiazepines Screen Urine Negative (Negative); Cannabinoid Screen Urine Negative (Negative); Cocaine Screen Urine Negative (Negative); Methadone Screen Urine Negative (Negative); Opiate Screen Urine Negative (Negative); Phencyclidine Screen Urine Negative (Negative)
[2019-12-07 01:25] VITALS: BP 122/82; PULSE 85; RESP 16; TEMP 36.6; O2SAT 99
== END 2019-12-07 01:26 | disposition home or self-care (01) ==
PROVIDERS: Emergency Provider Emergency Medicine; PCP Family Medicine
DX: E86.0 Dehydration (principal); Z85.6 Personal history of leukemia; K21.9 Gastro-esophageal reflux disease without esophagitis; I10 Essential (primary) hypertension; M19.90 Unspecified osteoarthritis, unspecified site
CPT/HCPCS: 36415; 71046; 74177; 80053; 80307; 81001; 83605; 83690; 83880; 84484; 85025; 85610; 85730; 87040; 93005; 96360; 99284; J7030; Q9967

== ENCOUNTER 2019-12-08 14:42 | Emergency (ER) | payer OTHER, SELFPAY ==
--- NOTE | ~2019-12-08 | US_ITS ---
EXAMINATION: US venous doppler [facility] DATE: 12/08/2019 17:01 INDICATION: Bilateral lower limb pain TECHNIQUE: Cortez scale images without and with compression and Doppler images of the bilateral lower e xtremity veins were obtained. COMPARISON: 10/04/2019. FINDINGS: The right common femoral vein, profunda femoral vein, femoral vein, popliteal vein, peroneal trunk, p osterior tibial veins, and greater saphenous vein are patent. The left common femoral vein, profunda femoral vein, femoral vein, popliteal vein, peroneal trunk, po sterior tibial veins, and greater saphenous vein are patent. IMPRESSION: 1. Patent bilateral lower extremity veins. No evidence of deep venous thrombosis. Reviewed, dictated and finalized at location A. [facility] LE[facility]ER IMPRESSION: 1. Patent bilateral lower extremity veins. No evidence of deep venous thrombosi s.
[2019-12-08 14:56] VITALS: BP 137/73; PULSE 75; RESP 14; TEMP 37.1; O2SAT 98
[2019-12-08 14:59] VITALS: RESP 14; O2SAT 99
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
[2019-12-08] MEDS: TRAMADOL HCL 50 MG TABLET PO (17:14)
[2019-12-08 17:19] LABS: Basophils Absolute Auto 0.1 K/mm3 (0.0-0.1); Basophils Percent Auto 0.7 % (0.2-1.2); Eosinophils Percent Auto 0.3 % (0-4.4); Hematocrit 36.9 % (42.0-52.0); Hemoglobin 11.3 g/dL (14.0-18.0); Immature Granulocyte Absolute 0.06 K/mm3 (0.00-0.031); Immature Granulocyte Percent A 0.8 % (0-0.5); Lymphocytes Absolute Auto 0.67 K/mm3 (0.9-3.2); Lymphocytes Percent Auto 9.2 % (18.3-44.2); Mean Corpuscular HGB Conc 30.6 g/dl (32-36); Mean Corpuscular Hemoglobin 25.7 pg (26-34); Mean Corpuscular Volume 83.9 fl (80-100); Mean Platelet Volume 10.4 fl (7.4-10.4); Monocytes Absolute Auto 1.2 K/mm3 (0.1-0.6); Monocytes Percent Auto 16.5 % (2.6-8.5); Neutrophils Absolute Auto 5.3 K/mm3 (1.3-6.7); Neutrophils Percent Auto 72.5 % (45.5-73.1); Platelet Count Result 328 k/mm3 (150-375); Red Cell Distribution Width 20.7 % (11.5-14.5); White Blood Count 7.3 K/mm3 (4.5-10.0)
[2019-12-08 17:38] LABS: Ethanol < 10 mg/dL (<10)
--- NOTE | 2019-12-08 17:39 | PCCCNOTE ---
Multiple phone calls to [facility] to get a picture of why the patient was initially admitted to [facility] in order for us to make an appropriate discharge plan. Unable to have the information clarified because staff was too focused on defending the patient's transfer to the hospital. Spoke with ROSEANNA Glover who stated that, at the time of the patient's transfer to [facility], the patient was medically unstable. When asked to clarify what assessments indicated that the patient was medically unstable, Belen replied that the patient appeared to be in CHF exacerbation, there were crackles in bilateral bases and there was 3+ pitting edema of bilateral legs up to and including the patient's abdomen . A cursory review of the EMS run sheet reveals vital signs at coal [facility] were within normal limits and that lung sounds were clear. ROSEANNA Glover stated that the patient fell off of couch this morning; patient stated that he did not fall but lowered himself off of the couch on purpose and explained this to the nurse. The reported 'fall' was unwitnessed by nursing staff. Patient states the staff did not want him there.
[2019-12-08 17:40] LABS: Alanine Aminotransferase 118 U/L (4-50); Albumin Level 3.6 g/dL (3.5-5.1); Alkaline Phosphatase 155 U/L (38-126); Aspartate Amino Transferase 130 U/L (17-59); Bilirubin,Total 0.5 mg/dL (0.2-1.3); Blood Urea Nitrogen 17 mg/dL (9-20); Calcium 8.1 mg/dL (8.4-10.2); Carbon Dioxide 31 mmol/L (22-30); Chloride 100 mmol/L (98-107); Estimated Glomerular Filt Rate > 60; Glucose 125 mg/dL (75-110); Potassium 4.8 mmol/L (3.4-5.0); Sodium 139 mmol/L (137-145)
[2019-12-08 17:42] LABS: Add Urine Microscopic? YES; Appearance Urine Clear (Clear); Bacteria Urine Trace /hpf; Bilirubin Urine Negative (Negative); Blood Urine Negative (Negative); Color Urine Yellow (Yellow); Glucose Urine UA Negative (Negative); Ketones Urine Negative (Negative); Leukocyte Esterase Ur Negative LEU/UL (Negative); Nitrate Urine Negative (Negative); Protein Urine Negative (Negative); RBC Urine 0-2 /hpf (0-2); WBC Urine 0-3 /hpf
[2019-12-08 17:46] LABS: NT Pro B Type Natriuretic Pept 813 PG/ML (5-100)
[2019-12-08 17:55] LABS: Amphetamine Screen Urine Negative (Negative); Barbiturate Screen Urine Negative (Negative); Benzodiazepines Screen Urine Negative (Negative); Cannabinoid Screen Urine Negative (Negative); Cocaine Screen Urine Negative (Negative); Methadone Screen Urine Negative (Negative); Opiate Screen Urine Negative (Negative); Phencyclidine Screen Urine Negative (Negative)
--- NOTE | 2019-12-08 18:55 | PC.NURSE ---
Nurse director from [facility] called into the ed to speak to management regarding the reason pt was sent to the ED. She stated that the patient was sent due to his physical condition getting worse and he is unable to be independant at the facility where he is currently residing. She reported that the patient is unable to ambulate on his own. She states that he has swelling to his lower legs and he just physically is not in a state to stay at the facility that he is currently at. I informed her that after evaluating him in the ED, the MD feels there is no medical reason to admit patient to the hospital and pt is going to be discharged to his family. Pt was ambulatory to the waiting room with the use of his cane.
[2019-12-08 19:02] VITALS: BP 127/84; PULSE 80; RESP 16; O2SAT 98
== END 2019-12-08 19:03 | disposition home or self-care (01) ==
PROVIDERS: Emergency Medicine; Emergency Provider Emergency Medicine; PCP Family Medicine
DX: R60.0 Localized edema (principal); M79.671 Pain in right foot; C92.10 Chronic myeloid leukemia, BCR/ABL-positive, not having achieved remission; K21.9 Gastro-esophageal reflux disease without esophagitis; M10.9 Gout, unspecified; I10 Essential (primary) hypertension; D50.9 Iron deficiency anemia, unspecified; M19.90 Unspecified osteoarthritis, unspecified site; F17.210 Nicotine dependence, cigarettes, uncomplicated
CPT/HCPCS: 36415; 80053; 80307; 81001; 83880; 84443; 85025; 93970; 99284; A9270

== ENCOUNTER 2020-02-16 08:52 | Outpatient (CLI) | payer OTHER, SELFPAY ==
[2020-02-16 09:30] LABS: Basophils Absolute Auto 0.2 K/mm3 (0.0-0.1); Basophils Percent Auto 1.6 % (0.2-1.2); Eosinophils Absolute Auto 0.1 K/mm3 (0-0.3); Eosinophils Percent Auto 0.7 % (0-4.4); Hematocrit 40.6 % (42.0-52.0); Immature Granulocyte Absolute 0.56 K/mm3 (0.00-0.031); Immature Granulocyte Percent A 4.6 % (0-0.5); Lymphocytes Absolute Auto 1.19 K/mm3 (0.9-3.2); Lymphocytes Percent Auto 9.8 % (18.3-44.2); Mean Corpuscular Hemoglobin 27.8 pg (26-34); Mean Corpuscular Volume 86.8 fl (80-100); Mean Platelet Volume 9.7 fl (7.4-10.4); Monocytes Absolute Auto 1.6 K/mm3 (0.1-0.6); Neutrophils Absolute Auto 8.5 K/mm3 (1.3-6.7); Neutrophils Percent Auto 70.3 % (45.5-73.1); Platelet Count Result 430 k/mm3 (150-375); Red Blood Count 4.68 M/mm3 (4.6-6.20); Red Cell Distribution Width 17.7 % (11.5-14.5); White Blood Count 12.1 K/mm3 (4.5-10.0)
[2020-02-16 09:44] LABS: Alanine Aminotransferase 91 U/L (4-50); Alkaline Phosphatase 141 U/L (38-126); Aspartate Amino Transferase 95 U/L (17-59); Bilirubin,Total 0.5 mg/dL (0.2-1.3); Blood Urea Nitrogen 14 mg/dL (9-20); Calcium 9.2 mg/dL (8.4-10.2); Carbon Dioxide 30 mmol/L (22-30); Chloride 104 mmol/L (98-107); Estimated Glomerular Filt Rate > 60; Glucose 108 mg/dL (75-110); Sodium 139 mmol/L (137-145)
[2020-02-16 09:47] LABS: Potassium 4.1 mmol/L (3.4-5.0)
== END 2020-02-16 08:53 | disposition home or self-care (01) ==
PROVIDERS: PCP Family Medicine; Visit Provider Internal Medicine Hematology & Oncology
DX: C92.10 Chronic myeloid leukemia, BCR/ABL-positive, not having achieved remission (principal)
CPT/HCPCS: 36415; 80053; 85025

== ENCOUNTER 2020-04-19 13:04 | Outpatient (CLI) | payer OTHER, SELFPAY ==
[2020-04-19 13:35] LABS: Basophils Absolute Auto 0.1 K/mm3 (0.0-0.1); Eosinophils Absolute Auto 0.1 K/mm3 (0-0.3); Eosinophils Percent Auto 0.9 % (0-4.4); Hematocrit 40.4 % (42.0-52.0); Hemoglobin 13.2 g/dL (14.0-18.0); Immature Granulocyte Absolute 0.06 K/mm3 (0.00-0.031); Immature Granulocyte Percent A 0.5 % (0-0.5); Immature Platelet Fraction Pct 2.5 % (0.9-11.2); Lymphocytes Absolute Auto 1.09 K/mm3 (0.9-3.2); Lymphocytes Percent Auto 9.5 % (18.3-44.2); Mean Corpuscular HGB Conc 32.7 g/dl (32-36); Mean Corpuscular Hemoglobin 27.7 pg (26-34); Mean Corpuscular Volume 84.7 fl (80-100); Mean Platelet Volume 10.1 fl (7.4-10.4); Monocytes Absolute Auto 0.8 K/mm3 (0.1-0.6); Monocytes Percent Auto 6.8 % (2.6-8.5); Neutrophils Absolute Auto 9.4 K/mm3 (1.3-6.7); Neutrophils Percent Auto 81.3 % (45.5-73.1); Platelet Count Result 489 k/mm3 (150-375); Red Blood Count 4.77 M/mm3 (4.6-6.20); Red Cell Distribution Width 15.9 % (11.5-14.5); White Blood Count 11.5 K/mm3 (4.5-10.0)
[2020-04-19 16:50] LABS: Alanine Aminotransferase 79 U/L (4-50); Albumin Level 3.9 g/dL (3.5-5.1); Alkaline Phosphatase 101 U/L (38-126); Aspartate Amino Transferase 70 U/L (17-59); Bilirubin,Total 0.6 mg/dL (0.2-1.3); Blood Urea Nitrogen 18 mg/dL (9-20); Calcium 8.1 mg/dL (8.4-10.2); Carbon Dioxide 29 mmol/L (22-30); Chloride 100 mmol/L (98-107); Estimated Glomerular Filt Rate > 60; Glucose 104 mg/dL (75-110); Potassium 4.5 mmol/L (3.4-5.0); Sodium 137 mmol/L (137-145)
[2020-04-26 14:41] LABS: BCR/abl Prior Result See Report; BCR/abl1/abl1% (IS) 67.915 %
[2020-04-26 15:27] LABS: BCR/abl P210 Detected
[2020-04-26 15:28] LABS: BCR/abl P210 Chg YES
== END 2020-04-19 13:05 | disposition home or self-care (01) ==
PROVIDERS: PCP Family Medicine; Visit Provider Internal Medicine Hematology & Oncology
DX: C92.10 Chronic myeloid leukemia, BCR/ABL-positive, not having achieved remission (principal)
CPT/HCPCS: 36415; 80053; 81207; 85025; 85055